=== PATIENT | male | born 1960 | race Caucasian/White ===

== ENCOUNTER 2018-06-15 11:36 | Day surgery (SDC) | payer BC ==
[2018-06-15] MEDS ORDERED: PROPOFOL 40 ML (13:20)
[2018-06-15] MEDS ORDERED: LIDOCAINE 2% (SDV) 5 ML INJ (13:20)
== END 2018-06-15 16:33 | disposition home or self-care (01) ==
LOC: GIL 11:36
DX: K63.5 Polyp of colon (principal); R19.7 Diarrhea, unspecified; E11.9 Type 2 diabetes mellitus without complications; I10 Essential (primary) hypertension; F17.200 Nicotine dependence, unspecified, uncomplicated
CPT/HCPCS: 45384; 82962; 88305